=== PATIENT | female | born 1960 | race African-American/Black ===

== ENCOUNTER 2017-01-20 11:27 | Emergency (ER) | payer BC, OTHER ==
[2017-01-20 14:31] VITALS: BP 145/103
== END 2017-01-20 14:31 | disposition home or self-care (01) ==
LOC: ED 11:27
DX: M54.16 Radiculopathy, lumbar region (principal); I10 Essential (primary) hypertension; J45.909 Unspecified asthma, uncomplicated; E78.00 Pure hypercholesterolemia, unspecified
CPT/HCPCS: J1100; J1885; Q0092